=== PATIENT | female | born 1975 | race Caucasian/White ===

== ENCOUNTER → 2017-02-19 | Day surgery (SDC) | payer OTHER ==
[~2017-02-19] MED LIST: BACITRACIN OINT 1 EACH PACKET TOPICAL ONE; LIDOCAINE 1% INJ 10MG/ML (20 ML MDV) ONE; LIDOCAINE 1%-EPI 1:100,000 20 ML VIAL ONE
--- NOTE | 2017-02-19 10:25 | USB ---
EXAMINATION TYPE: US biopsy breast VAD RT, MG postbiopsy diagnostic mammo RT wo CAD DATE OF EXAM: 02/19/2017 10:06 AM CLINICAL HISTORY: 41-year-old female referred for ultrasound-guided core needle biopsy of the right breast. Patient originally presented with a palpable abnormality. TECHNIQUE: Ultrasound guided core biopsy of the right breast. COMPARISON: Outside ultrasound and mammogram 02/01/2017 FINDINGS: The procedure of ultrasound guided core biopsy was explained to the patient. Benefits, alternatives, and risks were discussed. An informed consent was then obtained. Initial scanning redemonstrates the 1.9 cm cyst at the 9:00 position. This may correspond to the palpable finding. Just adjacent at the 9:00 position, there is redemonstrated 2.6 x 1.3 x 1.2 cm irregular hypoechoic area with some associated vascularity. However, this may represent a prominent island of fibroglandular tissue. This is noted to be more superior than the 9:00 position on real time scanning but has an identical appearance to the outside ultrasound images. The patient was placed in supine positioning for imaging and for the procedure. The overlying skin was prepped and draped in usual sterile fashion. Lidocaine was used as anesthetic into the skin and subcutaneous tissue. The deeper subcutaneous tissue anesthesia was attained with lidocaine/epinephrine mixture due to vascularity at and around the biopsy target. Under ultrasound guidance, a 13-gauge vacuum-assisted mammotome Elite biopsy gun device was used to obtain 6 core samples. Following this, a coil clip was left in lesion. Postprocedure mammogram shows clip in appropriate position more at the 10:00 position. The patient tolerated the procedure well without any immediate complication. The patient was kept in the radiology department for short stay after the procedure and then discharged home in stable condition. IMPRESSION: Successful, uncomplicated ultrasound guided core biopsy of area of concern in the right breast upper outer quadrant. Note that this was described as 9:00 in the outside ultrasound but corresponds more to the 10:00 position. Full pathology results to follow. 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 SEE SURGICAL PATHOLOGY CANCER CASE SUMMARY AND COMMENT. Recommendation Surgical consult of the right breast. ROSANA
== END ==
LOC: RADUSWWP 08:26
PROVIDERS: ATTEND Surgery
DX: C50.411 Malignant neoplasm of upper-outer quadrant of right female breast (principal); D24.1 Benign neoplasm of right breast; R92.8 Other abnormal and inconclusive findings on diagnostic imaging of breast
CPT/HCPCS: 88305; 88342; 88341; 19083; G0206; A4648; J2001

== ENCOUNTER → 2017-03-06 | Outpatient (CLI) | payer OTHER ==
--- NOTE | 2017-03-13 16:13 | BMR ---
EXAMINATION TYPE: MR breast BILAT wo/w con DATE OF EXAM: 03/06/2017 CLINICAL HISTORY: New diagnosis of breast cancer. COMPARISONS: None. PULSE SEQUENCES: Multiplanar, multisequence MR images of the breast were obtained on a MRI imaging scanner. Coronal STIR in the body coil, followed by pre-contrast axial T2 fat-saturated, non fat saturated T1, and one pre- and five post-contrast fat-saturated images were obtained of both breasts together with the breast coil. Post-processed subtraction and MIP reconstructions were then generated . Dynamic images were spatially registered using the [employer] software package, and dynamic curves and parametric images were evaluated. Information for type and amount of contrast was not available. Field of View of this study is also no t available. FINDINGS: There is heterogeneous central glandularity bilaterally and moderate background enhancement. Coronal STIR sequence demonstrates normal axillary lymph nodes. Axial T2 sequence demonstrates bilateral simple cysts, the largest measuring up to 2 cm in the right breast. Non fat saturated T1 sequence demonstrates susceptibility artifact from a marker clips seen on post biopsy mammogram dated 02/19/2017. Delayed post contrast sequence demonstrates no internal mammary lymphadenopathy. Regarding the right breast: In the 11 o' clock position, 3.2 cm from the nipple, there is an irregula r mass with irregular margins, which measures 4.6 x 3.6 x 1.5 cm. Internal enhancement is heterogeneous. Kinetics analysis demonstrates fast initial enhancement followed by washout on the delayed portions o f the curve. Best seen in image number 92 of the dynamic sequence. Regarding the left breast: There are no masses, architectural distortion or suspicious areas of enhancement. IMPRESSION: Right breast malignancy as described in detail in the body of the report. No evidence of malignancy in the left breast. Bilateral simple cysts, benign. No lymphadenopathy. Recommendations: Clinical management of the known right malignancy. BI-RADS category 6 right breast. BI-RADS category 2 left breast. I reviewed the images as well as the report and agree with the above findings. Exam reviewed on an [employer] workstation with dynamic CAD software. Patient received 10 cc MultiHance IV and dynamic postc ontrast imaging. 38 x 38 cm [id number]. 5 mm focus present immediately posterior to this abnormality approximately 6 cm from the nipple shows similar kinetics.
== END | disposition home or self-care (01) ==
LOC: RADMRIMAIN 10:03
PROVIDERS: ATTEND Surgery
DX: C50.411 Malignant neoplasm of upper-outer quadrant of right female breast (principal); N60.01 Solitary cyst of right breast
CPT/HCPCS: 77059; 0159T; A9577

== ENCOUNTER → 2017-03-06 | Outpatient (CLI) | payer OTHER ==
--- NOTE | 2017-03-06 12:17 | US ---
EXAMINATION TYPE: US axilla extremity RT DATE OF EXAM: 03/06/2017 12:06 PM COMPARISON: NONE CLINICAL HISTORY: Z85.3 Personal hx of breast CA N63 Breast lump/mas. Scanned right axilla, no abnormality noted. No enlarged lymph nodes seen. IMPRESSION: 1. No abnormality noted within the axilla.
== END | disposition home or self-care (01) ==
LOC: RADUSWWP 11:23
PROVIDERS: ATTEND Internal Medicine Hematology & Oncology
DX: N63 Unspecified lump in breast (principal); Z85.3 Personal history of malignant neoplasm of breast

== ENCOUNTER → 2017-05-06 | Outpatient (CLI) | payer OTHER ==
--- NOTE | 2017-05-06 09:57 | CT ---
EXAMINATION TYPE: CT ChestAbdPelvis w con DATE OF EXAM: 05/06/2017 COMPARISON: NONE HISTORY: Right-sided Breast Cancer. Observation for Mets. History of recent surgery February 2017. CT DLP: 473.50 mGycm. Automated Exposure Control for Dose Reduction was Utilized. CONTRAST: CT scan of the thorax, abdomen and pelvis is performed with IV Contrast, patient injected with 100 ml mL of Omnipaque 300. FINDINGS: LUNGS: The lungs are grossly clear, there is no concerning parenchymal mass or nodule identified. T here is no pleural effusion or pneumothorax seen. The tracheobronchial tree is patent. MEDIASTINUM: There are no greater than 1 cm hilar or mediastinal lymph nodes. No cardiomegaly or pe ricardial effusion is seen. OTHER: There has been bilateral mastectomy with artifact from expanders or implants identified, if im plants slightly more prominent intracapsular linear density is noted. They are subpectoral in locatio n. There is scar tissue towards right axilla. No suspicious axillary adenopathy is identified. LIVER/GB: There is subcentimeter low dense lesion right hepatic lobe on axial image 62 small to furth er characterize favored benign. Similar lesion is seen in left hepatic lobe on axial image 50 and sma ller lesion periphery right hepatic dome on axial image 51. PANCREAS: No significant abnormality is seen. SPLEEN: No significant abnormality is seen. ADRENALS: No significant abnormality is seen. KIDNEYS: No significant abnormality is seen. BOWEL: Oral contrast reaches level of the hepatic flexure. There is normal size appendix from the inf erior cecum. There is no suspicious small or large bowel dilatation. GENITAL ORGANS: Heterogeneous oval 1.5 cm lesion in uterine fundus on sagittal image 54 is suspicious for fibroid. Both ovaries are present near axial image 95 and not suspiciously enlarged. LYMPH NODES: No greater than 1cm abdominal or pelvic lymph nodes are appreciated. OSSEOUS STRUCTURES: No significant abnormality is seen. OTHER: No significant additional abnormality is seen. IMPRESSION: Postsurgical change to bilateral breasts, no evidence of residual or metastatic malignanc y. Nonspecific subcentimeter liver lesions presumed benign but can be followed.
--- NOTE | 2017-05-06 15:54 | NM ---
EXAMINATION TYPE: NM bone scan whole body DATE OF EXAM: 05/06/2017 COMPARISON: CT chest abdomen pelvis 05/06/2017 HISTORY: Breast cancer, C 50.411 Delayed whole-body scanning was performed following the injection of 27.5 mCi Tc 99m MDP. Images acq uired 4.5 hours post injection. FINDINGS: There is a focus of increased radio pharmaceutical uptake in the anterior right fourth rib. No corres ponding mass is evident on CT scan. Soft tissue uptake is normal. No additional abnormal uptake to zimmer ggest metastatic disease. IMPRESSION: Indeterminate fourth rib uptake on the right anteriorly. Findings could possibly be due to local trau ma, prior surgery performed at this level. Follow-up is suggested.
== END | disposition home or self-care (01) ==
LOC: RADCTMAIN 08:17
PROVIDERS: ATTEND Internal Medicine Hematology & Oncology
DX: K76.9 Liver disease, unspecified (principal); C50.411 Malignant neoplasm of upper-outer quadrant of right female breast; R94.8 Abnormal results of function studies of other organs and systems; Z98.890 Other specified postprocedural states
CPT/HCPCS: 71260; 74177; 78306; A9503; Q9967

== ENCOUNTER → 2017-05-07 | Outpatient (CLI) | payer OTHER ==
--- NOTE | 2017-05-08 10:33 | ECHOF ---
Referral Reason:C50.411 Breast CA, Z01.818 Pre Chemo MEASUREMENTS -------- HEIGHT: 157.5 cm WEIGHT: 54.4 kg BP: 109/72 RVIDd: 1.8 cm (< 3.3) IVSd: 0.7 cm (0.6 - 1.1) LVIDd: 4.3 cm (3.9 - 5.3) LVPWd: 0.8 cm (0.6 - 1.1) IVSs: 1.1 cm LVIDs: 3.0 cm LVPWs: 1.1 cm LAESV Index (A-L): 19.61 ml/m Ao Diam: 2.8 cm (2.0 - 3.7) AV Cusp: 1.5 cm (1.5 - 2.6) LA Diam: 2.4 cm (2.7 - 3.8) MV EXCURSION: 18.482 mm (> 18.000) MV EF SLOPE: 106 mm/s (70 - 150) EPSS: 0.8 cm MV E John Paul: 0.87 m/s MV DecT: 275 ms MV A John Paul: 0.36 m/s MV E/A Ratio: 2.44 RAP: 5.00 mmHg RVSP: 11.24 mmHg FINDINGS -------- Sinus rhythm. This was a technically adequate study. Patient has had a mastectomy with reconstruction. Overall left ventricular systolic function is normal with, an EF between 55 - 60 %. The right ventricle is normal in size and function. Normal LA size by volume 22+/-6 ml/m2. The right atrium is normal in size. The aortic valve is trileaflet, and appears structurally normal. No aortic stenosis or regurgitation. The mitral valve leaflets are mildly thickened. There is trace mitral regurgitation. Trace tricuspid regurgitation present. There is no evidence of pulmonary hypertension. The right ventricular systolic pressure, as measured by Doppler, is 11.24mmHg. The pulmonic valve was not well visualized. The aortic root size is normal. Normal inferior vena cava with normal inspiratory collapse consistent with estimated right atrial pressure of 5 mmHg. The pericardium is normal. There is no pericardial effusion. CONCLUSIONS -------- 1. Sinus rhythm. 2. There is no evidence of pulmonary hypertension. 3. The right ventricular systolic pressure, as measured by Doppler, is 11.24mmHg. 4. The pulmonic valve was not well visualized. 5. The aortic root size is normal. 6. There is no pericardial effusion. 7. This was a technically adequate study. 8. Patient has had a mastectomy with reconstruction. 9. Overall left ventricular systolic function is normal with, an EF between 55 - 60 %. 10. Normal LA size by volume 22+/-6 ml/m2. 11. The aortic valve is trileaflet, and appears structurally normal. No aortic stenosis or regurgitation. 12. The mitral valve leaflets are mildly thickened. 13. There is trace mitral regurgitation. 14. Trace tricuspid regurgitation present. INFORMATION MANAGEMENT MANAGER: Sj Okeefe RDCS
== END | disposition home or self-care (01) ==
LOC: RADECHMAIN 15:06
PROVIDERS: ATTEND Internal Medicine Hematology & Oncology
DX: Z01.810 Encounter for preprocedural cardiovascular examination (principal); C50.411 Malignant neoplasm of upper-outer quadrant of right female breast; I05.9 Rheumatic mitral valve disease, unspecified; Z90.10 Acquired absence of unspecified breast and nipple
CPT/HCPCS: 93306

== ENCOUNTER 2017-05-08 10:34 | Day surgery (SDC) | payer OTHER ==
[2017-05-01 16:06] VITALS: BMI 21.9
[~2017-05-08 10:34] MED LIST changes: -BACITRACIN OINT 1 EACH PACKET TOPICAL ONE; +DEXAMETHASONE SOD PHOSPHATE 10 MG/ML 1 ML VIAL IV ONE; +HYDROmorphone 1 MG/ML 1 ML SYRINGE IVP PRN; +LACTATED RINGERS 1,000 ML IV SCH; +LIDOCAINE 1% 20 ML VIAL (10MG/ML) FOR IV START INTRADERMA PRN; -LIDOCAINE 1% INJ 10MG/ML (20 ML MDV) ONE; -LIDOCAINE 1%-EPI 1:100,000 20 ML VIAL ONE; +MIDAZOLAM 2 MG/2 ML VIAL IV PRN; +ONDANSETRON 4 MG/2 ML VIAL IVP ONE; +SCOPOLAMINE 1.5MG/72HR PATCH TRANSDERM ONE; +ceFAZolin 2 GM in SODIUM CHLORIDE 0.9% 100 ML IVPB ONE
[2017-05-08 11:06] VITALS: RESP 16; TEMP 97.3
--- NOTE | 2017-05-08 11:28 | P.GSHP ---
History of Present Illness H&P Date: 05/08/17 Chief Complaint: Breast cancer 41 years old female status post bilateral mastectomy for right breast cancer. She had positive lymph nodes. She is status post reconstruction with expanders. Patient now presents for Mediport placement for chemotherapy. She also has scheduled radiation therapy. Past Medical History Past Medical History: Cancer Additional Past Medical History / Comment(s): RIGHT BREAST CANCER (FEBRUARY 2017), ANEMIA. History of Any Multi-Drug Resistant Organisms: None Reported Past Surgical History: Breast Surgery, Section Additional Past Surgical History / Comment(s): X2, UTERINE ABLATION, BILATERAL MASTECTOMY ([facility]) Past Anesthesia/Blood Transfusion Reactions: Motion Sickness, Postoperative Nausea & Vomiting (PONV) Past Psychological History: No Psychological Hx Reported Smoking Status: Never smoker Past Alcohol Use History: Rare Past Drug Use History: None Reported - Past Family History Mother Family Medical History: No Reported History Medications and Allergies Home Medications Medication Instructions Recorded Confirmed Type Acetaminophen Tab [Tylenol Tab] 650 mg PO DAILY PRN 05/01/17 05/08/17 History Allergies Allergy/AdvReac Type Severity Reaction Status Date / Time No Known Allergies Allergy Verified 05/08/17 10:50 Surgical - Exam Vital Signs Temp Pulse Resp BP Pulse Ox 97.3 F L 66 16 110/78 98 05/08/17 11:01 05/08/17 11:01 05/08/17 11:01 05/08/17 11:01 05/08/17 11:01 General: Patient is alert and oriented to time, place and person and cooperative with exam. He is not in acute distress. HEENT: No pallor, no icterus, no thyroid enlargement, no cervical lymphadenopathy. Chest: Bilateral equal breath sounds present. No wheezes, no crackles. Cardiovascular: Regular rate and rhythm. Abdomen: Soft, nontender, nondistended. Integumentary: No active ulcers or discharge. Neurologic: Cranial nerves II-XII intact. Strength upper and lower extremities 5/5. No focal neurologic deficits. Gait is normal. Psychiatric: No anxiety or psychosis. No suicidal thoughts. Assessment and Plan (1) Breast cancer, right Status: Acute Plan: 1. Informed consent obtained and patient elected to undergo ultrasound and SonoSite guided MediPort placement 2. Since she has right breast cancer and bilateral mastectomy with right axillary lymph node dissection, I would proceed with left internal jugular Mediport placement. In case of difficulty with access I will attempt left subclavian or right internal jugular approach.
[2017-05-08] MEDS ORDERED: fentaNYL (PF) 50 MCG/ML 2 ML AMP ONE (11:41)
[2017-05-08] MEDS ORDERED: PROPOFOL 10 MG/ML 20 ML VIAL IV ONE (11:41)
[2017-05-08] MEDS ORDERED: MIDAZOLAM 2 MG/2 ML VIAL ONE (11:41)
[2017-05-08] MEDS ORDERED: HEPARIN SODIUM,PORCINE 100 UNIT/ML 5 ML VIAL IV ONE (12:07)
[2017-05-08] MEDS ORDERED: BUPIVACAIN-EPI 0.25%-1:200,000 30 ML VIAL SQ ONE (12:07)
--- NOTE | 2017-05-08 12:39 | FL ---
FLUOROSCOPY 10 seconds of fluoroscopy time were utilized during Port-A-Cath insertion. 1 images document the proc edure.
--- NOTE | 2017-05-08 12:40 | P.OP ---
Date of Procedure: 05/08/17 Preoperative Diagnosis: Right breast cancer status post bilateral mastectomy and right axillary lymph node dissection Postoperative Diagnosis: Same Procedure(s) Performed: Left internal jugular 8-Czech Mediport placement under fluoroscopic and SonoSite guidance Implants: Powerport [id number]. Exp date: Lot #[id number] Anesthesia: MAC, local Surgeon: Betty Hernandez Pathology: none sent Condition: stable Disposition: PACU Indications for Procedure: 41 years old female status post bilateral mastectomy and right axillary lymph node dissection presents for MediPort insertion for chemotherapy. Informed consent obtained patient is to undergo the procedure. Operative Findings: Postprocedure chest x-ray did not show any pneumothorax. Catheter tip in SVC Description of Procedure: The patient was brought to the operating room and placed in supine position with both arms tucked. A footboard was placed. Chlorhexidine was used to prep the neck followed by application of sterile drapes and an Ioban dressing . A timeout was performed to verify correct patient and correct procedure. Patient was confirmed to receive perioperative IV antibiotics and VTE prophylaxis. An ultrasound was performed of the left neck to identify the carotid artery and internal jugular vein. The internal jugular vein was compressible and patent . Photodocumentation was made. Local anesthetic was infiltrated to create a field block. Seldinger technique was used and the internal jugular vein was accessed under direct ultrasound guidance. There was good backflow of dark venous blood. The guidewire was inserted and fluoroscopic images obtained to confirm the tip in SVC. The needle was removed followed by insertion of a dilator peel-away sheath. Local anesthetic was infiltrated along the inferior aspect of the left clavicle. A 2.5 cm skin incision was made and dissection was carried up to the pectoralis major muscle. A pocket was created for the port. The catheter tubing was connected to the port using the conector after flushing both the port and the catheter with normal saline. The tunneling device was connected to the end of the catheter and after placement of the port in the subcutaneous pocket the tunneling device was passed from the lower incision to the counter incision in the neck. The catheter was measured at the junction of SVC and right atrium. The inner cannula of the peel-away sheath was removed and catheter was gradually inserted. The peel-away sheath was gradually removed. Fluoroscopic image confirmed the tip of the catheter at the junction of SVC and right atrium. There was no kink, fold or torsion of the catheter and the port. The Rocha needle was used to access the port and easy backflow was obtained. This was flushed with 10 mL of normal saline and 10 mL of Hep-Lock was inserted. The skin incision was closed in 3 layers using 3-0 Vicryl interrupted stitches and a running suture of 4-0 Monocryl. Counter incision in the neck was also closed using 3-0 Vicryl followed by 4-0 Monocryl. Dermabond skin glue was applied followed by Telfa and Tegaderm dressing. The sponge, instrument and needle count were correct x2 Patient tolerated the procedure well and was taken to post anesthesia care unit in stable condition Final chest x-ray showed the tip of the catheter in SVC and no pneumothorax. Total fluoroscopic time was 10 seconds
--- NOTE | 2017-05-08 13:01 | XR ---
EXAMINATION TYPE: XR chest 1V confirm line [facility] DATE OF EXAM: 05/08/2017 HISTORY: left IJ mediport. REFERENCE: NONE. FINDINGS: A MediPort is been inserted via a left internal jugular approach. Its tip is at the cavoatr ial junction. There is some subcutaneous emphysema within the neck. There are bilateral chest expanders in place. The lungs are clear. Pleural space are clear. Heart size is normal. There is no evidence of pneumotho rax. IMPRESSION: I DO NOT SEE A POST CATHETER INSERTION COMPLICATION ASIDE FROM SUBCUTANEOUS EMPHYSEMA.
[2017-05-08 13:11] VITALS: BP 135/84; PULSE 86
== END 2017-05-08 13:48 | disposition home or self-care (01) ==
LOC: OR 10:34
PROVIDERS: ATTEND Surgery
DX: C50.911 Malignant neoplasm of unspecified site of right female breast (principal); Z90.11 Acquired absence of right breast and nipple
CPT/HCPCS: 81025; 77001; 36561; 76937; C1788; J2250; J1642; J1100; J0690; J2405; J3010; J2704

== ENCOUNTER 2017-10-11 06:04 | Day surgery (SDC) | payer BC ==
[2017-10-08 15:42] VITALS: BMI 24.7
--- NOTE | 2017-10-10 16:37 | P.GSHP ---
History of Present Illness H&P Date: 10/11/17 Chief Complaint: Breast cancer 42 years old female status post bilateral mastectomy for right breast cancer. She had positive lymph nodes. She is status post reconstruction with expanders. Patient now presents for Mediport removal . She will be starting radiation therapy in Oct 2017 Past Medical History Past Medical History: Cancer Additional Past Medical History / Comment(s): RIGHT BREAST CANCER (FEBRUARY 2017), ANEMIA. History of Any Multi-Drug Resistant Organisms: None Reported Past Surgical History: Breast Surgery, Section, Uterine Ablation Additional Past Surgical History / Comment(s): X2, BILATERAL MASTECTOMY, medi port Past Anesthesia/Blood Transfusion Reactions: Motion Sickness, Postoperative Nausea & Vomiting (PONV) Smoking Status: Never smoker - Past Family History Mother Family Medical History: No Reported History Medications and Allergies Home Medications Medication Instructions Recorded Confirmed Type Cholecalciferol (Vitamin D3) 2,000 unit PO DAILY 10/08/17 10/11/17 History [Vitamin D3] Multivitamins, Thera [Multivitamin 1 tab PO DAILY 10/08/17 10/11/17 History (formulary)] Hydrocodone/Acetaminophen [Emeigh 1 each PO Q6HR PRN #10 tab 10/11/17 Rx 5-325] Allergies Allergy/AdvReac Type Severity Reaction Status Date / Time No Known Allergies Allergy Verified 10/11/17 06:24 Surgical - Exam General: Patient is alert and oriented to time, place and person and cooperative with exam. He is not in acute distress. HEENT: No pallor, no icterus, no thyroid enlargement, no cervical lymphadenopathy. Chest: Bilateral equal breath sounds present. No wheezes, no crackles. Cardiovascular: Regular rate and rhythm. Abdomen: Soft, nontender, nondistended. Integumentary: No active ulcers or discharge. Neurologic: Cranial nerves II-XII intact. Strength upper and lower extremities 5/5. No focal neurologic deficits. Gait is normal. Psychiatric: No anxiety or psychosis. No suicidal thoughts. - General well developed, no pain - Neck no masses - Cardiovascular Rhythm: regular Assessment and Plan (1) Breast cancer, right Status: Acute Code(s): C50.911 - MALIGNANT NEOPLASM OF UNSP SITE OF RIGHT FEMALE BREAST SNOMED Code(s): 681837981 Plan: 1. Removal of left IJ mediport in OR 2. Ancef 2 gm IVPBx1
[~2017-10-11 06:04] MED LIST changes: +HYDROmorphone 0.5 MG/0.5 ML SYRINGE IVP PRN; -HYDROmorphone 1 MG/ML 1 ML SYRINGE IVP PRN; -LIDOCAINE 1% 20 ML VIAL (10MG/ML) FOR IV START INTRADERMA PRN; -MIDAZOLAM 2 MG/2 ML VIAL IV PRN; +ONDANSETRON 4 MG/2 ML VIAL IVP PRN; -SCOPOLAMINE 1.5MG/72HR PATCH TRANSDERM ONE; -ceFAZolin 2 GM in SODIUM CHLORIDE 0.9% 100 ML IVPB ONE; +ceFAZolin IN SWFI 2 GM/20 ML SYRINGE IVP ONE
[2017-10-11 06:28] VITALS: RESP 16; TEMP 97.8
[2017-10-11] MEDS ORDERED: SCOPOLAMINE 1.5MG/72HR PATCH TRANSDERM ONE (06:37)
[2017-10-11] MEDS ORDERED: LIDOCAINE 1% 20 ML VIAL (10MG/ML) FOR IV START INTRADERMA ONE (06:37)
[2017-10-11] MEDS ORDERED: MIDAZOLAM 2 MG/2 ML VIAL ONE (07:09)
[2017-10-11] MEDS ORDERED: LIDOCAINE 1% INJ 10MG/ML (20 ML MDV) ONE (07:09)
[2017-10-11] MEDS ORDERED: PROPOFOL 10 MG/ML 20 ML VIAL IV ONE (07:09)
[2017-10-11] MEDS ORDERED: fentaNYL (PF) 50 MCG/ML 2 ML AMP ONE (07:09)
[2017-10-11] MEDS ORDERED: BUPIVACAINE-EPI 0.5%-1:200,000 10 ML VIAL SQ ONE ×2 (07:18)
[2017-10-11 07:53] VITALS: BP 126/73; PULSE 71
--- NOTE | 2017-10-11 08:34 | P.OP ---
Date of Procedure: 10/11/17 Preoperative Diagnosis: Right breast cancer Postoperative Diagnosis: Same Procedure(s) Performed: Removal of left IJ mediport Anesthesia: MAC, local Surgeon: Betty Hernandez Pathology: none sent Condition: stable Disposition: PACU Indications for Procedure: 42 years old female status post bilateral mastectomy and adjuvant chemotherapy presents for Mediport removal. Description of Procedure: The patient was brought to the operating room and placed in supine position. Chlorhexidine was used to prep the neck. IV sedation was given as per anesthesia team. Sterile drapes applied. A timeout was performed to verify correct patient and correct procedure. 10 mL of local anesthetic was infiltrated to create a field block. A 2 cm skin incision was made which was deepened through the subcu breast tissue and the Mediport along with the catheter was removed. Pressure was held in the neck at the entry of the catheter site. The cavity was checked for hemostasis. The defect was closed in 2 layers using interrupted sutures of 2-0 Vicryl and running subcutaneous sutures of 4-0 Monocryl. Dermabond skin glue applied. Patient tolerated the procedure well. The sponge, instrument and needle count were correct 2.
== END 2017-10-11 08:12 | disposition home or self-care (01) ==
LOC: OR 06:04
PROVIDERS: ATTEND Surgery
DX: Z45.2 Encounter for adjustment and management of vascular access device (principal); C50.911 Malignant neoplasm of unspecified site of right female breast; Z90.13 Acquired absence of bilateral breasts and nipples; Z92.21 Personal history of antineoplastic chemotherapy; Z79.899 Other long term (current) drug therapy
CPT/HCPCS: 81025; 36590; J2250; J1100; J2405; J2001; J3010; J2704

== ENCOUNTER → 2017-11-04 | Outpatient (CLI) | payer BC ==
--- NOTE | 2017-11-04 15:24 | BD ---
EXAMINATION TYPE: MG DEXA axial skeleton. DATE OF EXAM: 11/04/2017 COMPARISON: NONE CLINICAL HISTORY: Height: 62 Weight: 133.6 FRAX RISK QUESTIONS: Alcohol (3 or more units per day): no Family History (Parent hip fracture): no Glucocorticoids (More than 3mos): no (Ex: prednisone, prednisolone, methylprednisolone, dexamethasone, and hydrocortisone). History of Fracture in Adulthood: no Secondary Osteoporosis: 1. Type 1 Diabetes: no 2. Hyperthyroidism: no 3. Menopause before 45: yes 4. Malnutrition: no 5. Chronic liver disease: no Rheumatoid Arthritis: no Current Tobacco Use: no RISK FACTORS HISTORY OF: Hip Fracture (Right/Left): no Spine Fracture: no History of Wrist Fracture: no Surgery to Spine/Hip(right/left)/Wrist (right/left): no Family History of Osteoporosis: yes Active: yes Diet low in dairy products/other sources of calcium: yes Postmenopausal woman: may 2017 Lost more than 2 inches in height since high school: no Frequent falls: no Poor Health: no Hyperparathyroidism: no Adrenal Insufficiency: no MEDICATIONS: effexor, femara, vit d Additional History: pt was diagnosed with breast cancer in february 2017- EXAM MEASUREMENTS: Bone mineral densitometry was performed using the [employer]. Bone mineral density as measured about the Lumbar spine is: ----- L1-L4(G/cm2): 0.877 T Score Values are as follows: ----- L2: -2.3 ----- L3: -2.5 ----- L4: -2.9 ----- L1-L4: -2.4 Bone mineral density baseline Bone mineral density about the R hip (g/cm2): 0.790 Bone mineral density about the L hip (g/cm2): 0.812 T Score values are as follows: -----R Neck: -1.8 -----L Neck: -1.6 -----R Total: -1.9 -----L Total: -1.7 Bone mineral density baseline IMPRESSION: Osteopenia about the lumbar spine and bilateral femora. NOTE: T-SCORE=SD OF THE YOUNG ADULT MEAN.
== END | disposition home or self-care (01) ==
LOC: RADBDWWP 13:07
PROVIDERS: ATTEND Internal Medicine Hematology & Oncology
DX: C50.411 Malignant neoplasm of upper-outer quadrant of right female breast (principal); M85.88 Other specified disorders of bone density and structure, other site; N95.1 Menopausal and female climacteric states; Z79.890 Hormone replacement therapy
CPT/HCPCS: 77080

== ENCOUNTER → 2018-03-29 | Outpatient (CLI) | payer BC ==
[2018-03-29 10:13] LABS: Basophils % (A) 1 %; Eosinophils # (A) 0.1 k/uL (0-0.7); Eosinophils % (A) 2 %; HCT 40.3 % (34.0-46.0); HGB 13.5 gm/dL (11.4-16.0); Lymphocytes # (A) 0.7 k/uL (1.0-4.8); Lymphocytes % (A) 23 %; MCH 27.5 pg (25.0-35.0); MCHC 33.5 g/dL (31.0-37.0); Mean Platelet Volume 6.4; Monocytes # (A) 0.2 k/uL (0-1.0); Monocytes % (A) 6 %; Neutrophils # (A) 1.9 k/uL (1.3-7.7); Neutrophils % (A) 67 %; Platelet Count 197 k/uL (150-450); RBC 4.91 m/uL (3.80-5.40); RDW 13.8 % (11.5-15.5); WBC 2.8 k/uL (3.8-10.6)
[2018-03-29 10:27] LABS: ALT 31 U/L (9-52); AST 24 U/L (14-36); Albumin 4.6 g/dL (3.5-5.0); Alkaline Phosphatase 56 U/L (38-126); Anion Gap 8 mmol/L; Blood Urea Nitrogen 19 mg/dL (7-17); Calcium 10.4 mg/dL (8.4-10.2); Carbon Dioxide 28 mmol/L (22-30); Chloride 107 mmol/L (98-107); Cholesterol 222 mg/dL (<200); Creatine Kinase 41 U/L (30-135); Glucose 79 mg/dL (74-99); HDL Cholesterol 54 mg/dL (40-60); LDL Cholesterol,Calculated 144 mg/dL (0-99); Potassium 5.3 mmol/L (3.5-5.1); Sodium 143 mmol/L (137-145); Total Bilirubin 0.3 mg/dL (0.2-1.3); Total Protein 7.1 g/dL (6.3-8.2); Triglycerides 121 mg/dL (<150)
[2018-03-29 10:43] LABS: T4, Free (Free Thyroxine) 0.94 ng/dL (0.78-2.19)
[2018-03-29 16:55] LABS: Iron Saturation 30.16 (12.00-45.00)
[2018-03-29 17:03] LABS: Vitamin D 25 Hydroxy 23.4 ng/mL (30.0-100.0)
[2018-03-29 17:22] LABS: Folate, Serum 13.2 ng/mL
[2018-03-29 19:18] LABS: Hemoglobin A1C 4.8 % (4.0-6.0)
== END | disposition home or self-care (01) ==
LOC: LABWHC1 09:13
PROVIDERS: ATTEND Internal Medicine
DX: Z00.00 Encounter for general adult medical examination without abnormal findings (principal); M85.80 Other specified disorders of bone density and structure, unspecified site; D64.89 Other specified anemias; F32.9 Major depressive disorder, single episode, unspecified
CPT/HCPCS: 36415; 80053; 80061; 82306; 82550; 82607; 82728; 82746; 83036; 83540; 83550; 84439; 84443; 85025

== ENCOUNTER → 2018-12-01 | Outpatient (CLI) | payer BC ==
[2018-12-01 14:58] VITALS: BMI 24.0
== END | disposition home or self-care (01) ==
LOC: LABWHC1 12:49
PROVIDERS: ATTEND Internal Medicine Hematology & Oncology
DX: R63.5 Abnormal weight gain (principal)
CPT/HCPCS: 97802

== ENCOUNTER → 2019-09-04 | Outpatient (CLI) | payer BC ==
--- NOTE | 2019-09-04 14:06 | XR ---
Left knee HISTORY: Left knee pain 3 views of the left knee Bone mineralization and alignment are maintained. No fracture or dislocation. No evident joint effusi on. Mild spurring present at the patellofemoral joint, joint space loss at the patellofemoral joint, medial compartment. IMPRESSION: Osteoarthritis.
== END | disposition home or self-care (01) ==
LOC: RADXRMAIN 13:11
PROVIDERS: ATTEND Internal Medicine
DX: M17.12 Unilateral primary osteoarthritis, left knee (principal); I10 Essential (primary) hypertension

== ENCOUNTER → 2019-11-05 | Outpatient (CLI) | payer BC ==
--- NOTE | 2019-11-05 15:14 | BD ---
EXAMINATION TYPE: Axial Bone Density DATE OF EXAM: 11/05/2019 COMPARISON: 11.04.2017 CLINICAL HISTORY: 44 YR OLD FEMALE....ICD-10 CODE: M89.9 OSTEOPENIA, C50.411 BR CANCER Height: 61.4 Weight: 132 FRAX RISK QUESTIONS: Secondary Osteoporosis: YES 3. Menopause before 45: YES, AT 42 RISK FACTORS HISTORY OF: Family History of Osteoporosis: YES, HER MOTHER, NO FX Active: YES Postmenopausal woman: YES, AT AGE 42 ON ANTI HORMONE LUPRON SHOT AND LETROZOLE Hyperparathyroidism: NO Adrenal Insufficiency: NO MEDICATIONS: Osteoporosis Medications: ZOMETA INFUSION EVERY 6 MONTHS, SINCE AGE 42 Additional Medications: BP MEDS, EFFEXOR, AND OTHERS, HX OF CHEMO AND RADIATION, VIT D Additional History: HX OF RT BREAST CANCER, AT 42 YRS OLD, HYPERTENSION, EXAM MEASUREMENTS: Bone mineral densitometry was performed using the [employer] System. Bone mineral density as measured about the Lumbar spine is: ----- L1-L4(G/cm2): 0.929 T Score Values are as follows: ----- L1: -1.8 ----- L2: -2.2 ----- L3: -2.1 ----- L4: -2.3 ----- L1-L4: -2.1 Bone mineral density has: Increased 5.1% since study of: 11.04.2017 Bone mineral density about the R hip (g/cm2): 0.782 Bone mineral density about the L hip (g/cm2): 0.811 T Score values are as follows: -----R Neck: -1.6 -----L Neck: -1.3 -----R Total: -1.8 -----L Total: -1.6 Bone mineral density has: Increased 2.2% since study of: 11.04.2017 FRAX%s: THERE IS A 3.6% CHANCE FOR A MAJOR OSTEOPOROTIC FX AND A 0.4% FOR HIP.....PROBABILITY FOR F X IN 10 YRS TIME IMPRESSION: Osteopenia (T Score between -2.5 and -1). There is slightly increased risk of fracture and the patient may be considered for treatment. Re-Screen 2-5 years. NOTE: T-SCORE=SD OF THE YOUNG ADULT MEAN.
== END | disposition home or self-care (01) ==
LOC: RADBDWWP 09:59
PROVIDERS: ATTEND Internal Medicine Hematology & Oncology
DX: M85.89 Other specified disorders of bone density and structure, multiple sites (principal); C50.411 Malignant neoplasm of upper-outer quadrant of right female breast
CPT/HCPCS: 77080

== ENCOUNTER → 2020-04-27 | Outpatient (CLI) | payer BC ==
[2020-04-27 08:41] LABS: Basophils % (A) 0 %; Eosinophils # (A) 0.1 k/uL (0-0.7); Eosinophils % (A) 3 %; HCT 40.8 % (34.0-46.0); HGB 13.6 gm/dL (11.4-16.0); Lymphocytes # (A) 0.9 k/uL (1.0-4.8); Lymphocytes % (A) 28 %; MCHC 33.4 g/dL (31.0-37.0); Mean Platelet Volume 6.9; Monocytes # (A) 0.2 k/uL (0-1.0); Monocytes % (A) 7 %; Neutrophils % (A) 61 %; Platelet Count 204 k/uL (150-450); RBC 4.85 m/uL (3.80-5.40); RDW 13.1 % (11.5-15.5); WBC 3.2 k/uL (3.8-10.6)
[2020-04-27 08:49] LABS: African American GFR (CKD) >90 (>60 ml/min/1.73 sqM); Anion Gap 6 mmol/L; Blood Urea Nitrogen 22 mg/dL (7-17); Carbon Dioxide 28 mmol/L (22-30); Chloride 106 mmol/L (98-107); Glucose 83 mg/dL (74-99); Non-African American GFR(CKD) >90 (>60 ml/min/1.73 sqM); Potassium 4.6 mmol/L (3.5-5.1); Sodium 140 mmol/L (137-145)
== END | disposition home or self-care (01) ==
LOC: LABPAT 07:30
PROVIDERS: ATTEND Obstetrics & Gynecology
DX: Z01.818 Encounter for other preprocedural examination (principal); I10 Essential (primary) hypertension; C50.919 Malignant neoplasm of unspecified site of unspecified female breast
CPT/HCPCS: 36415; 80051; 82565; 82947; 84520; 85025; 87086; 93005

== ENCOUNTER 2020-05-03 05:56 | Day surgery (SDC) | payer BC ==
--- NOTE | 2020-04-28 10:24 | HP ---
HISTORY AND PHYSICAL This is a 44-year-old white female 2, para 2, 0-0-2, who presents for hysterectomy and bilateral salpingo-oophorectomy for a history of breast cancer, estrogen receptor positive, progesterone receptor positive. Dr. Pérez is her oncologist and he is recommending hysterectomy and BSO. The patient has been counseled regarding different methodology of surgery and we have elected to proceed with vaginal hysterectomy, BSO. She understands the risk of GEO pending surgical progress. PAST MEDICAL HISTORY: Is significant for breast cancer, hypertension, anemia, and bowel issues. PAST SURGICAL HISTORY: section x2, endometrial ablation, bilateral mastectomy. CURRENT MEDICATIONS: Effexor XR 150 mg daily, letrozole 2.5 mg daily, lisinopril 20 mg daily, Depo Lupron intramuscularly. Transdermal oxybutynin. ALLERGIES: None known. FAMILY HISTORY: Significant for lupus. REPRODUCTIVE HISTORY: sections x2, uncomplicated. SOCIAL HISTORY: The patient has never been a tobacco smoker, she denies alcohol or drug use. She is single. PHYSICAL EXAM: This is a pleasant white female who is 5 foot, 1.5 inches, 129 pounds, BMI 24, blood pressure 122/70, patient is afebrile, pulse 70. HEENT exam reveals no thyromegaly, no cervical lymphadenopathy, good dentition. The neck is soft and supple with good range of motion. Chest is clear to auscultation in all valencia anteriorly and posteriorly. Cardiac exam reveals regular rate and rhythm with no murmur, click, or rub. Breasts revealed bilateral implants, symmetric and well seated. No adenopathy noted. Gastrointestinal exam reveals a scaphoid abdomen, no rigidity or guarding, no organosplenomegaly, no herniorrhaphy. Pelvic exam reveals normal-appearing external genitalia, nulliparous cervix with no discharge or odor. The uterus is small, mobile, anteverted, anteflexed, negative adnexa bilaterally. Rectal exam reveals good sphincter tone, no hemorrhoids, FIT negative stool sample. No lymphadenopathy is noted. Neurologic and psychiatric exam reveals the patient to be oriented x3 with good judgment and insight, normal mood and affect. IMPRESSION: History of breast cancer, estrogen and progesterone receptor positive. Recommendation from oncologist is for hysterectomy and bilateral salpingo-oophorectomy. PLAN: Because patient has had 2 previous C-sections, we will proceed with cystoscopy after surgery. Our plan is for vaginal hysterectomy, bilateral salpingo-oophorectomy. Patient understands the risk of total abdominal hysterectomy if surgery cannot be accomplished vaginally. She understands the risks of surgery to include but not be exclusive of bleeding, infection, perforation or damage to bladder, bowels, ureters, or indeed any pelvic or abdominal organs. Second opinion is offered and declined. We will proceed with surgery on Saturday, May 03 as noted. MMODL / IJN: [id number] /
[2020-04-29 09:49] VITALS: BMI 22.8
[~2020-05-03 05:56] MED LIST changes: +LIDOCAINE 1% (10MG/ML) FOR IV START INTRADERMA PRN; -ONDANSETRON 4 MG/2 ML VIAL IVP PRN; +SCOPOLAMINE 1.5MG/72HR PATCH TRANSDERM ONE; -ceFAZolin IN SWFI 2 GM/20 ML SYRINGE IVP ONE
[2020-05-03] MEDS ORDERED: ONDANSETRON 4 MG/2 ML VIAL ONE (06:22)
[2020-05-03] MEDS ORDERED: LIDOCAINE 1% (10MG/ML) FOR IV START INTRADERMA ONE (06:50)
[2020-05-03] MEDS ORDERED: MIDAZOLAM 2 MG/2 ML VIAL IV ONE (06:58)
[2020-05-03] MEDS ORDERED: diphenhydrAMINE 50 MG/ML 1 ML VIAL ONE (07:19)
[2020-05-03] MEDS ORDERED: diphenhydrAMINE 50 MG/ML 1 ML VIAL IVP ONE (07:20)
[2020-05-03] MEDS ORDERED: SUCCINYLCHOLINE CHLORIDE 100 MG/5 ML SYR IV ONE (07:24)
[2020-05-03] MEDS ORDERED: MIDAZOLAM 2 MG/2 ML VIAL ONE (07:24)
[2020-05-03] MEDS ORDERED: LIDOCAINE 1% INJ 10MG/ML (20 ML MDV) ONE (07:24)
[2020-05-03] MEDS ORDERED: PROPOFOL 10 MG/ML 20 ML VIAL IV ONE (07:24)
[2020-05-03] MEDS ORDERED: MORPHINE SULFATE (PF) 0.3 MG/0.3 ML SYR ONE (07:24)
[2020-05-03] MEDS ORDERED: fentaNYL (PF) 50 MCG/ML 2 ML AMP ONE (07:24)
[2020-05-03] MEDS ORDERED: VASOPRESSIN 20 UNIT/ML 1 ML VIAL SQ ONE (08:01)
[2020-05-03] MEDS ORDERED: BACITRACIN ZINC 500 UNIT/GM OINT 28.4 GM TUBE TOPICAL ONE (08:01)
--- NOTE | 2020-05-03 09:18 | P.OP ---
Date of Procedure: 05/03/20 Preoperative Diagnosis: Estrogen and progesterone receptor positive breast cancer Postoperative Diagnosis: Same, normal-appearing ovaries bilaterally Procedure(s) Performed: Vaginal hysterectomy, bilateral salpingo-oophorectomy, cystoscopy. Anesthesia: spinal Surgeon: Mounika Duran Regional Sales Director #1: Berna Boykin Estimated Blood Loss (ml): 50 IV fluids (ml): 500 Urine output (ml): 150 Pathology: other (Cervix and uterus, bilateral tubes and ovaries under separate cover) Condition: stable Disposition: PACU Description of Procedure: Patient is brought to the operating suite where a general anesthetic is administered after the spinal with Duramorph is given. Antibiotics are given. The appropriate timeout is performed to assure proper patient and procedural identification. The cervix, vagina, perineal body and lower abdomen are all prepped and draped in usual sterile fashion. Urine hCG is negative. The weighted speculum was placed into the vagina. The bladder is drained for approximately 150 mL of clear yellow urine. The cervix is grasped with a double-tooth tenaculum and the cervix is injected circumferentially with a dilute Pitressin solution. A hopi blade scalpel is used to incise the mucosa circumferentially with a V positioning at 6:00. A sponge rolled finger is used to sweep the mucosa from the underlying fascial plane. At all times the bladder is Well from the operative field to avoid bladder and/or ureteral injury. Peritoneum is entered at 6:00 and suture tied with 2-0 Vicryl. Large billed speculum is then placed into the vagina. The right uterosacral cardinal ligament is identified, clamped cut and suture ligated. The suture is held with a hemostat. The same procedure is carried out contralaterally. Uterine vasculature is next identified and skeletonized, it is clamped cut and suture ligated. 2 additional pedicles are taken superior to the vessels. The anterior peritoneum was then entered. The uterus is "walked out" posteriorly. Miladys clamps are used across the final pedicles, the cervix and uterus are removed. 0 Vicryl sutures used to tie these pedicles, they are flashed, retied for excellent hemostasis. At this time a sponge stick is placed into the cavity to protect the bowel. The right tube and ovary are visualized and brought into the surgical field with a Mj clamp. The Endoloop of 0 Vicryl is placed around the tube and ovary. This was cinched down. The pedicle is then grasped with a Miladys clamp. The tube and ovary are removed and sent to pathology. The pedicle is once again retied with 0 Vicryl for excellent hemostasis. Attention is then drawn to the left tube and ovary were the procedure is repeated. The left tube and ovary are high in the peritoneal cavity. I am careful to cauterize the remaining base in the event that a small piece of left ovarian cortex remains. A sponge stick is once again used and all pedicles are noted to be clean and dry. The speculum is then changed to the large billed speculum. The peritoneum is brought around in a pursestring fashion to close peritoneal cuff. The uterosacral cardinal ligaments are now brought across to incorporate the opposite ligament as well as vaginal mucosa. The vagina is closed with 2 additional [id number]-mostz sutures of 0 Vicryl. The cystoscope was then placed in the bladder is filled. Both ureters are visualized, the bladder mucosa is sm ooth. There is no bleeding, puckering, or distortion of the bladder noted. The vagina is now packed with half inch iodophor gauze with basic tracing. All sponge needle and enhancement counts are correct. Patient is brought back to the recovery room in very good condition with stable vital signs including blood pressure 104/70, pulse 55, 99% O2 saturation.
[2020-05-03] MEDS ORDERED: KETOROLAC 30 MG/ML 1 ML VIAL IVP PRN (09:19)
[2020-05-03] MEDS ORDERED: ONDANSETRON 4 MG/2 ML VIAL IVP PRN (09:19)
[2020-05-03] MEDS ORDERED: IBUPROFEN 600 MG TAB PO PRN (09:19)
[2020-05-03] MEDS ORDERED: SIMETHICONE 80 MG CHEWABLE PO PRN (09:19)
[2020-05-03] MEDS ORDERED: METOCLOPRAMIDE 5 MG/ML 2 ML VIAL IVP PRN (09:19)
[2020-05-03] MEDS ORDERED: LACTATED RINGERS 1,000 ML IV ONE ×2 (09:48)
[2020-05-03] MEDS ORDERED: NALOXONE 0.4 MG/ML 1 ML VIAL IV PRN (10:16)
[2020-05-03] MEDS: diphenhydrAMINE 50 MG/ML 1 ML VIAL IVP PRN ×2 (12:15→19:26)
--- NOTE | 2020-05-03 13:16 | P.ANPRN ---
Procedure Note - Anesthesia - Epidural/Spinal Spinal Time Out Performed: Yes Date of Procedure: 05/03/20 Procedure Start Time: 06:57 Procedure Stop Time: 07:01 Location of Patient: PreOp Indication: Acute Post-Operative Pain, Requested by Surgeon Sedation Type: Sedate with meaningful contact maintained Preparation: Sterile Prep Position: Sitting Needle Guage: 25 Blood Aspirated: No Pain Paresthesia on Injection Noted: No Events: Uneventful and Well Tolerated (duramorph 300 mcg plus fentanyl 25 mcg)
[2020-05-04 08:33] VITALS: BP 119/73; PULSE 85; RESP 18; TEMP 98.2
--- NOTE | 2020-05-04 08:46 | P.DS ---
Providers Date of admission: 05/03/20 Expected date of discharge: 05/04/20 Attending physician: Mounika Duran Primary care physician: [facility] Course: This is a 44-year-old white female 2 para 2001 who presented on recommen dation from her oncologist for removal of the ovaries. After thorough consultation we elected to proceed with vaginal hysterectomy, bilateral salpingo-oophorectomy. Please see admitting H&P for details. Patient underwent a vaginal hysterectomy, bilateral salpingo-oophorectomy, and cystoscopy under my care yesterday. She did very well intraoperatively. Specimens were sent under separate cover. Please see dictated operative note for details. Duramorph was given prior to the procedure, vaginal packing and Doherty catheter placed. This morning the patient is doing extremely well. She is voiding, and bleeding, passing flatus without difficulty. She is tolerating regular food. She has no report of pain. She is judged to be in very good condition for discharge home. The vaginal packing and Doherty catheter has been removed. IV has been removed. Patient is reminded to use [id number] Advil or Aleve, or Motrin as needed for pain. She will call with any fevers shakes or chills, foul smelling or bloody vaginal discharge, with any pain not alleviated by [id number] products. I have reminded her no heavy lifting, no driving, no tampons intercourse or douching. Menopausal symptomatology has been removed now that the patient's ovaries are removed. Pathology report sent to oncologist for his records and review. Patient Condition at Discharge: Good Plan - Discharge Summary Discharge Rx Participant: No New Discharge Prescriptions: No Action Oxybutynin Chloride 5 mg PO BID Letrozole [Femara] 2.5 mg PO HS Venlafaxine HCl [Effexor XR] 150 mg PO HS Discharge Medication List Letrozole [Femara] 2.5 mg PO HS 04/29/20 [History] Oxybutynin Chloride 5 mg PO BID 04/29/20 [History] Venlafaxine HCl [Effexor XR] 150 mg PO HS 04/29/20 [History] Follow up Appointment(s)/Referral(s): Mounika Duran MD [STAFF PHYSICIAN] - 2 Weeks
--- NOTE | 2020-05-04 11:49 | P.PN ---
Progress Note - Text 05/04 656am 4-year-old female status post vaginal hysterectomy by Dr. Duran. Patient had a spinal Duramorph for postop pain control. Patient seen and evaluated this morning she had a VAS score of 0 with no complaints of nausea vomiting. Patient did have problems with pruritus and was treated with Benadryl
== END 2020-05-04 09:25 | disposition home or self-care (01) ==
LOC: OR 05:56 → 4FBP 09:06 → OR 05-04 09:25
PROVIDERS: ATTEND Obstetrics & Gynecology
DX: D25.9 Leiomyoma of uterus, unspecified (principal); C50.919 Malignant neoplasm of unspecified site of unspecified female breast; Z17.0 Estrogen receptor positive status [ER+]; I10 Essential (primary) hypertension; D64.9 Anemia, unspecified; Z82.69 Family history of other diseases of the musculoskeletal system and connective tissue; K63.9 Disease of intestine, unspecified; Z90.13 Acquired absence of bilateral breasts and nipples; Z98.890 Other specified postprocedural states; Z79.890 Hormone replacement therapy; Z79.899 Other long term (current) drug therapy; F32.9 Major depressive disorder, single episode, unspecified
CPT/HCPCS: 81025; 86900; 86901; 88305; 86850; 88307; 58262; J2250; J1200; J1100; J0690; J2405; J2001; J2274; J3010; J0330; J2704

== ENCOUNTER → 2021-12-04 | Outpatient (CLI) | payer BC ==
--- NOTE | 2021-12-04 15:44 | BD ---
EXAMINATION TYPE: Axial Bone Density DATE OF EXAM: 12/04/2021 COMPARISON: NONE CLINICAL HISTORY: Height: 5 FT 1 IN Weight: 132 FRAX RISK QUESTIONS: Alcohol (3 or more units per day): NO Family History (Parent hip fracture): NO Glucocorticoids (More than 3mos): NO (Ex: prednisone, prednisolone, methylprednisolone, dexamethasone, and hydrocortisone). History of Fracture in Adulthood: YES Secondary Osteoporosis: 1. Type 1 Diabetes: NO 2. Hyperthyroidism: NO 3. Menopause before 45: YES CHEMO INDUCED 4. Malnutrition: NO 5. Chronic liver disease: NO Rheumatoid Arthritis: NO Current Tobacco Use: NO RISK FACTORS HISTORY OF: Surgery to Spine/Hip(right/left)/Wrist (right/left): NO Family History of Osteoporosis: NO Active: YES Diet low in dairy products/other sources of calcium: NO Postmenopausal woman: YES Take estrogen and/or progesterone medications: NO Lost more than 2 inches in height since high school: NO Frequent falls: NO Poor Health: GOOD Hyperparathyroidism: NO Adrenal Insufficiency: NO MEDICATIONS: Additional Medications: LETROZOLE, OXYBUTIN, EFFEXOR Additional History: BREAST CANCER AGE 42 CHEMO AND RADIATION EXAM MEASUREMENTS: Bone mineral densitometry was performed using the [employer] System. Bone mineral density as measured about the Lumbar spine is: ----- L1-L4(G/cm2): 0.922 T Score Values are as follows: ----- L2: -1.7 ----- L3: -2.4 ----- L4: -2.7 ----- L1-L4: -2.1 Bone mineral density has: DECREASED -1.3 % since study of: 2019 Bone mineral density about the R hip (g/cm2): 0.779 Bone mineral density about the L hip (g/cm2): 0.829 T Score values are as follows: -----R Neck: -1.9 -----L Neck: -1.5 -----R Total: -1.7 -----L Total: -1.3 Bone mineral density has: INCREASED 2.9 % since study of: 2019 IMPRESSION: Osteopenia (T Score between -2.5 and -1). There is slightly increased risk of fracture and the patient may be considered for treatment. Re-Screen 2-5 years. NOTE: T-SCORE=SD OF THE YOUNG ADULT MEAN.
== END | disposition home or self-care (01) ==
LOC: RADBDWWP 07:42
PROVIDERS: ATTEND Internal Medicine Hematology & Oncology
DX: M85.89 Other specified disorders of bone density and structure, multiple sites (principal); Z79.890 Hormone replacement therapy
CPT/HCPCS: 77080

== ENCOUNTER → 2023-06-25 | Outpatient (CLI) | payer OTHER ==
--- NOTE | 2023-06-25 13:41 | CA ---
Transthoracic Echo Report Name: Hallie Solorzano Age: 48 Gender: F : 1975 Exam Date: 06/25/2023 12:36 Exam Location: [place] [facility] Ht (in): 62 Wt (lb): 135 Ordering Physician: Cande Verma MD Attending/Referring Phys: Cathie Duffy [facility] Pipe Organ Technician Ericka Carrillo RDCS Procedure CPT: Indications: R42 dizziness and giddiness Cardiac Hx: Technical Quality: Good Contrast 1: Total Dose (mL): Contrast 2: Total Dose (mL): MEASUREMENTS (Male / Female) Normal Values 2D ECHO LV Diastolic Diameter PLAX 4.2 cm 4.2 - 5.9 / 3.9 - 5.3 cm LV Systolic Diameter PLAX 3.1 cm IVS Diastolic Thickness 0.9 cm 0.6 - 1.0 / 0.6 - 0.9 cm LVPW Diastolic Thickness 0.9 cm 0.6 - 1.0 / 0.6 - 0.9 cm LV Relative Wall Thickness 0.4 RV Internal Dim ED PLAX 2.9 cm LA Systolic Diameter LX 3.5 cm 3.0 - 4.0 / 2.7 - 3.8 cm LV Diastolic Volume MOD BP 68.4 cm??? 67 - 155 / 56 - 104 cm??? LV Systolic Volume MOD BP 18.3 cm??? 22 - 58 / 19 - 49 cm??? LV Ejection Fraction MOD BP 73.2 % >= 55 % LV Cardiac Index MOD BP 2065.5 cm???/min???m??? LV Diastolic Volume MOD 4C 72.4 cm??? LV Systolic Volume MOD 4C 18.4 cm??? LV Ejection Fraction MOD 4C 74.6 % LV Cardiac Index MOD 4C 2230.2 cm???/min???m??? LV Diastolic Length 4C 7.1 cm LV Systolic Length 4C 6.1 cm LV Diastolic Volume MOD 2C 64.4 cm??? LV Systolic Volume MOD 2C 17.6 cm??? LV Ejection Fraction MOD 2C 72.6 % LV Cardiac Index MOD 2C 1931.6 cm???/min???m??? LV Diastolic Length 2C 7.2 cm LV Systolic Length 2C 6.3 cm LA Volume 43.5 cm??? 18 - 58 / 22 - 52 cm??? M-MODE Aortic Root Diameter MM 2.5 cm MV E Point Septal Separation 0.3 cm AV Cusp Separation MM 1.5 cm DOPPLER AV Peak Velocity 147.4 cm/s AV Peak Gradient 8.7 mmHg AI Peak Velocity 257.6 cm/s AI Peak Gradient 26.6 mmHg AI Pressure Half Time 1007.6 ms MV Area PHT 2.3 cm??? Mitral E Point Velocity 71.1 cm/s Mitral A Point Velocity 58.6 cm/s Mitral E to A Ratio 1.2 MV Deceleration Time 327.2 ms MV E' Velocity 11.6 cm/s Mitral E to MV E' Ratio 6.1 TR Peak Velocity 226.0 cm/s TR Peak Gradient 20.4 mmHg Right Ventricular Systolic Press 25.4 mmHg FINDINGS Left Ventricle Left ventricular ejection fraction is estimated at 55-60 %. Left ventricular cavity size normal. Left ventricular wall thickness normal. normal left ventricular wall motion. Right Ventricle Normal right ventricular size. Right ventricular systolic pressure within normal limits. Right Atrium Normal right atrial size. Left Atrium Normal left atrial size. Mitral Valve Structurally normal mitral valve. Mild mitral regurgitation. Aortic Valve Trileaflet aortic valve. mild aortic regurgitation. Tricuspid Valve Structurally normal tricuspid valve. Mild tricuspid regurgitation. Pulmonic Valve Structurally normal pulmonic valve. Trace pulmonic regurgitation. Pericardium No pericardial effusion. Aorta Normal size aortic root and proximal ascending aorta. CONCLUSIONS 1. Normal left ventricle size and systolic function 2. Mild mitral and tricuspid regurgitation with mild aortic regurgitation Previewed by: Dr. Anjel Little MD (Electronically Signed) Final Date: 25 June 2023 13:40
== END | disposition home or self-care (01) ==
LOC: RADECHMAIN 12:08
PROVIDERS: ATTEND Internal Medicine
DX: I08.3 Combined rheumatic disorders of mitral, aortic and tricuspid valves (principal); R42 Dizziness and giddiness
CPT/HCPCS: 93270; 93306

== ENCOUNTER → 2023-10-31 | Outpatient (CLI) | payer OTHER ==
--- NOTE | 2023-10-31 11:10 | USB ---
Reason for Exam: Clinical finding. Patient History: Breast cancer, age 41. 02/19/2017, Malignant Core Biopsy on the right side. Technique: Method: Targeted. Prior Study Comparison: 02/19/2017 Right Diagnostic Mammogram, [facility]. Findings: The area of palpable concern of the right breast, the lower inner quadrant of the right breast and the axilla of the right breast were scanned. Targeted ultrasound right breast 3:00 to 6:00 including the subareolar region and axilla. There is an underlying breast prosthesis demonstrated. No solid or cystic lesion is identified with particular attention to the 3:00 palpable site.. Overall Assessment: Negative, BI-RAD 1 Management: Clinical Management of the right breast in 1 year. Clinical management of any suspicious palpable abnormality. Underlying breast prosthesis is noted. No abnormal masses identified at the 3:00 palpable site. If any enlarging abnormality is detected, the patient will be rescanned. Patient with bilateral mastectomies. Results were given to the patient verbally at the time of exam. Electronically signed and approved by: Darlyn Mullins M.D. Radiologist
== END | disposition home or self-care (01) ==
LOC: RADUSWWP 10:16
PROVIDERS: ATTEND Internal Medicine Hematology & Oncology
DX: D24.1 Benign neoplasm of right breast (principal)